=== PATIENT | female | born 1960 | race Caucasian/White ===

== ENCOUNTER 2024-12-29 13:04 | Emergency (ER) | payer MEDICARE, MEDICAID ==
[~2024-12-29] VITALS: Ht 162.6 cm; Wt 98.0 kg
[~2024-12-29 13:04] MED LIST: ALPR-624 PO; METH-603 PO
[2024-12-29 13:21] VITALS: TEMP 97.7
[2024-12-29] MEDS ORDERED: AMOX-580 PO (15:42)
[2024-12-29 15:48] VITALS: BP 140/62; PULSE 60; RESP 14; O2SAT 98
== END 2024-12-29 15:52 | disposition home or self-care (01) ==
LOC: ER 13:04
DX: R05.9 Cough, unspecified (principal); Z79.899 Other long term (current) drug therapy
CPT/HCPCS: 71046; 99283